=== PATIENT | female | born 1965 | race Caucasian/White ===

== ENCOUNTER 2018-01-25 19:07 | Emergency (ER) | payer OTHER ==
[~2018-01-25] VITALS: Ht 162.6 cm; Wt 80.0 kg
[2018-01-25 19:09] VITALS: BP 175/94
[2018-01-25] MEDS ORDERED: ibuprofen tablet 400 MG TABLET PO ONE (19:50)
[2018-01-25] MEDS ORDERED: IBUP-1985 PO (20:06)
== END 2018-01-25 20:24 | disposition home or self-care (01) ==
LOC: ER 19:08
DX: S46.912A Strain of unspecified muscle, fascia and tendon at shoulder and upper arm level, left arm, initial encounter (principal); X50.0XXA Overexertion from strenuous movement or load, initial encounter; Y93.89 Activity, other specified; Y92.69 Other specified industrial and construction area as the place of occurrence of the external cause; Y99.9 Unspecified external cause status
CPT/HCPCS: 99282